=== PATIENT | female | born 1970 | race Caucasian/White ===

== ENCOUNTER 2016-11-30 17:35 | Emergency (ER) | payer OTHER ==
[~2016-11-30] VITALS: Ht 162.6 cm; Wt 79.0 kg
[2016-11-30] MEDS ORDERED: KETOROLAC 60MG/2ML VIAL IM ONE (18:45)
[2016-11-30 21:48] VITALS: BP 15/62
== END 2016-11-30 22:11 | disposition home or self-care (01) ==
LOC: ER 17:39
DX: M54.41 Lumbago with sciatica, right side (principal); I10 Essential (primary) hypertension; J45.909 Unspecified asthma, uncomplicated
CPT/HCPCS: 96372; 99283; J1885

== ENCOUNTER 2017-03-21 23:27 | Emergency (ER) | payer OTHER ==
[~2017-03-21] VITALS: Ht 167.6 cm; Wt 77.0 kg
[2017-03-22] MEDS ORDERED: MAGNESIUM/ALUMINUM HYDROXIDE/SIMETHICONE 30ML UDC PO STA (01:54)
[2017-03-22 02:14] LABS: CHLORIDE 110 mEq/L (98-107)
[2017-03-22 02:17] LABS: BASOPHILS % 0.6 % (0.0-2.0); EOSINOPHILS % 3.8 % (0.0-5.0); HEMATOCRIT. 41.1 % (36.0-48.0); HEMOGLOBIN. 13.6 g/dL (12.0-16.0); MEAN CORPUSCULAR HEMOGLOBIN 29.6 pg (28.0-32.0); MEAN PLATELET VOLUME 9.2 fl (7.4-10.4); MONOCYTES % 4.9 % (2.0-8.0); NEUTROPHILS % 54.7 % (40.0-76.0); PLATELET 198 x1000/uL (130-400); RED BLOOD CELL COUNT 4.61 mill/uL (4.2-5.4); RED CELL DISTRIBUTION WIDTH 14.6 % (11.6-14.6)
[2017-03-22 02:17] LABS: CLARITY URINE CLEAR (CLEAR); COLOR URINE YELLOW (YELLOW); KETONES URINE NEGATIVE (NEGATIVE); LEUKOCYTE ESTERASE URINE NEGATIVE (NEGATIVE); NITRITE URINE NEGATIVE (NEGATIVE); OCCULT BLOOD URINE NEGATIVE (NEGATIVE); PROTEIN URINE NEGATIVE (NEGATIVE); SPECIFIC GRAVITY URINE 1.011 (1.005-1.030); UROBILINOGEN URINE 0.2 E.U./dL (0.2-1.0)
[2017-03-22 02:25] LABS: CREATINE KINASE 106 IU/L (26-192); ETHANOL BLOOD 204 mg/dL
[2017-03-22 04:48] LABS: *AMPHETAMINES SCREEN URINE PRESUMTIVE POSITIVE (NEGATIVE); *BARBITURATES SCREEN URINE NEGATIVE (NEGATIVE); *BENZODIAZEPINES SCREEN URINE NEGATIVE (NEGATIVE); *COCAINE SCREEN URINE NEGATIVE (NEGATIVE); CANNABINOID URINE SCREEN NEGATIVE (NEGATIVE); METHADONE URINE SCREEN NEGATIVE (NEGATIVE); OPIATES URINE SCREEN NEGATIVE (NEGATIVE); PHENCYCLIDINE URINE SCREEN NEGATIVE (NEGATIVE)
[2017-03-22 08:00] VITALS: BP 111/58
== END 2017-03-22 08:05 | disposition home or self-care (01) ==
LOC: EDUNIT# 23:27 → ER 23:27
DX: S39.012A Strain of muscle, fascia and tendon of lower back, initial encounter (principal); F10.129 Alcohol abuse with intoxication, unspecified; X58.XXXA Exposure to other specified factors, initial encounter; Y93.89 Activity, other specified; Y92.89 Other specified places as the place of occurrence of the external cause; Y99.8 Other external cause status; Y90.7 Blood alcohol level of 200-239 mg/100 ml
CPT/HCPCS: 36415; 80053; 80305; 81003; 82550; 85025; 99284; G0482; Z7610

== ENCOUNTER 2017-09-11 12:55 | Emergency (ER) | payer OTHER ==
[~2017-09-11] VITALS: Ht 160 cm; Wt 80.0 kg
[2017-09-11 12:59] VITALS: BP 119/74
== END 2017-09-11 15:56 | disposition left against medical advice (07) ==
LOC: ER 14:45
DX: M54.9 Dorsalgia, unspecified (principal); Z53.21 Procedure and treatment not carried out due to patient leaving prior to being seen by health care provider

== ENCOUNTER 2022-09-29 19:25 | Emergency (ER) | payer MEDICAID ==
[~2022-09-29] VITALS: Ht 165.1 cm; Wt 91.0 kg
[2022-09-29 19:36] VITALS: BP 131/79; PULSE 91; RESP 18; TEMP 98.2; O2SAT 99
== END 2022-09-29 21:19 | disposition left against medical advice (07) ==
LOC: ER 19:25
DX: Z53.21 Procedure and treatment not carried out due to patient leaving prior to being seen by health care provider (principal)
CPT/HCPCS: 99281; 99283